=== PATIENT | male | born 1965 | race Caucasian/White ===

== ENCOUNTER 2018-12-07 08:02 | Inpatient (IN) | payer OTHER ==
[~2018-12-07] VITALS: Ht 177.8 cm; Wt 81.0 kg
[2018-12-07] MEDS ORDERED: IBUP1TAB6 PO (08:49)
--- NOTE | 2018-12-07 09:27 | REP ---
CT of the brain without IV contrast: There are no comparisons. There is no hemorrhage. There is no edema, mass effect or midline shift. The cortical stripe is unremarkable. Ventricles are normal size and midline. The visualized paranasal sinuses and mastoid air cells are clear. Impression: There is no hemorrhage, acute infarct or mass. Essentially negative CT study of the brain. Electronically Signed by Pascual Scales MD 12/07/2018 09:18 A
[2018-12-07] MEDS ORDERED: PERCOCET 5MG/325MG TAB PO ONE (10:00)
[2018-12-07] MEDS ORDERED: NORC1TAB7 PO (10:44)
--- NOTE | 2018-12-07 11:10 | REP ---
CT CERVICAL SPINE: CT cervical spine performed. Axial images are obtained with sagittal and coronal reconstruction images. There is no compression fracture. There is no prevertebral soft tissue swelling. There is slight retrolisthesis of C5 on C6 about 2 mm. There is mild spurring of C5. There is mild disc space narrowing at C5-6 and C6-7. A bifid spinous process is seen at C5. 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 There is bifid spinous process at C6. There is partial fusion of the right posterior lamina of C6 and C7 with a pseudoarticulation with subchondral sclerosis and hypertrophic changes. At C2-3, there is minimal diffuse disc bulging. Uncovertebral spurring causes some minimal foraminal narrowing on the left. At C5-6, there is mild diffuse disc bulging asymmetrically more so to the left of midline with uncovertebral and facet spurring. There is mild to moderate left sided foraminal narrowing without significant spinal stenosis. At C4-5, there is mild to moderate diffuse disc bulging with uncovertebral and facet spurring. There is mild spinal stenosis. There is not significant foraminal narrowing. At C5-6, there is mild diffuse disc bulging. There is uncovertebral spurring. The hypertrophic change from the posterior congenital fusion anomaly projects slightly into the right posterior spinal canal. There is mild to moderate spinal stenosis at this level. There is not significant foraminal narrowing. At C6-7, there is mild uncovertebral spurring without spinal stenosis or significant foraminal narrowing. IMPRESSION: No acute fracture or dislocation. Degenerative changes as above with mild disc bulging at multiple levels. 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 There is mild spinal stenosis at C4-5 and C5-6. Electronically Signed by Pascual Galan MD 12/08/2018 03:37 P
[2018-12-07] MEDS ORDERED: MULTIVITAMIN -ADULT INJECTION 10 ML, THIAMINE INJection 100 MG, FOLIC ACID 1 MG in NS 1... IV ONE (12:00)
[2018-12-07 12:52] LABS: BASO # 0.1 10^3/uL (0.0-0.2); BASO % 1.2 % (0.0-1.0); EOS # 0.2 10^3/uL (0.0-0.50); EOS % 2.4 % (0.0-3.0); HEMATOCRIT 46.8 % (42.0-52.0); HEMOGLOBIN 15.4 g/dl (13.5-17.5); LYMPH # 3.2 10^3/uL (1.5-4.5); LYMPH % 34.3 % (24.0-44.0); MEAN CORPUSCULAR HEMOGLOBIN 31.1 pg (27.0-33.0); MEAN CORPUSCULAR HGB CONC 32.9 g/dl (32.0-36.5); MEAN CORPUSCULAR VOLUME 94.5 fl (80.0-96.0); MONO # 0.5 10^3/uL (0.0-0.8); MONO % 5.8 % (0.0-5.0); NEUTROPHILS # 5.2 10^3/uL (1.8-7.7); PLATELET COUNT, AUTOMATED 279 10^3/uL (150-450); RED BLOOD COUNT 4.95 10^6/uL (4.30-6.10); WHITE BLOOD COUNT 9.3 10^3/uL (4.0-10.0)
[2018-12-07 13:05] LABS: AMPHETAMINES LEVEL URINE NEGATIVE (NEGATIVE); BARBITURATES URINE NEGATIVE (NEGATIVE); BENZODIAZEPINES URINE NEGATIVE (NEGATIVE); CANNABINOIDS URINE POSITIVE (NEGATIVE); COCAINE METABOLITE URINE POSITIVE (NEGATIVE); METHADONE URINE NEGATIVE (NEGATIVE); OPIATES URINE NEGATIVE (NEGATIVE); PHENCYCLIDINE URINE NEGATIVE (NEGATIVE)
[2018-12-07 13:08] LABS: INR 1.08; PROTHROMBIN TIME 13.7 SECONDS (11.8-14.0)
--- NOTE | 2018-12-07 13:08 | REP ---
CHEST, PORTABLE: AP portable view of the chest is performed. There are no prior studies for comparison. There is mild interstitial prominence in the lung bases, representing fibrosis or some mild bibasilar interstitial infiltrate/edema. No consolidating infiltrate is seen. Heart is normal in size. Mediastinal silhouette is unremarkable. Electronically Signed by Pascual Galan MD 12/08/2018 03:55 P
[2018-12-07 13:09] LABS: PARTIAL THROMBOPLASTIN TIME 29.1 SECONDS (25.0-38.4)
[2018-12-07 13:36] LABS: ACETAMINOPHEN LEVEL 5.4 UG/ML (10.0-30.0); ALBUMIN 3.5 GM/DL (3.2-5.2); ALT/SGPT 14 U/L (12-78); BILIRUBIN,DIRECT 0.1 MG/DL (0.0-0.2); BILIRUBIN,TOTAL 0.4 MG/DL (0.2-1.0); BLOOD UREA NITROGEN 17 MG/DL (7-18); CALCIUM LEVEL 8.8 MG/DL (8.5-10.1); CARBON DIOXIDE LEVEL 25 MEQ/L (21-32); CHLORIDE LEVEL 112 MEQ/L (98-107); CK-MB VALUE MASS < 1.0 NG/ML (<3.6); CPK CREATINE PHOSPHOKINASE 81 U/L (39-308); CREATININE FOR GFR 0.99 MG/DL (0.70-1.30); ETHYL ALCOHOL (ETHANOL) < 0.003 % (0.000-0.010); FREE T4 0.86 NG/DL (0.76-1.46); GLOMERULAR FILTRATION RATE > 60.0 (>56); GLUCOSE, FASTING 90 MG/DL (70-100); LIPASE 652 U/L (73-393); MB/CK RELATIVE INDEX 1.23 (< OR =4); NT-PRO BNP 36 PG/ML (<125); SALICYLATE LEVEL 2.3 MG/DL (5.0-30.0); SODIUM LEVEL 144 MEQ/L (136-145); TOTAL PROTEIN 6.6 GM/DL (6.4-8.2); TROPONIN I < 0.02 NG/ML (< 0.10)
[2018-12-07] MEDS ORDERED: ALPRAZolam 0.25 MG TAB PO PRN (14:30)
--- NOTE | 2018-12-07 15:39 | HPEPDOC ---
General Date of Admission Dec 07, 2018 at 14:16 Date of Service: Dec 07, 2018 Chief Complaint The patient is a 53-year-old male who presented to the emergency room with complaints of neck pain History of Present Illness Patient is a 53-year-old male with a past medical history of HTN, C hronic neck pain / degenerative disc disease who presented to the emergency room with persistent neck/head pain. Patient has a chronic history of upper neck pain secondary to degenerative disc disease and is followed with orthopedic surgery as an outpatient. Patient presented to the emergency room because of worsening upper neck/head pain that has been going on for 1 month duration. Patient had received imaging in the emergency room and had a reviewed by orthopedic surgery who recommended outpa tient follow-up. Upon patients discharge, patient had reported dizziness and was found to have a heart rate in the 30s. Currently patient denies any chest pain, shortness of breath, palpitations, n ausea, vomiting, abdominal pain, constipation, diarrhea, discomfort with urination, fevers or chills. Patient denies any insect bites or tick bites. Has reported a weight loss of approximately 20-30 pounds in the last 3 months and has reported normal appetite. 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 Review of Systems Other systems 10 point review of systems complete, all negative otherwise stated in HPI Vital Signs - Vitals: BP 132/62, HR 38, RR 18, Sat 97%RA, Temp 98.6F - General: Lying in bed, No acute distress, Speaking in full sentences, AAOx3 - HEENT: NC, AT, PERRLA, EOMI - CVS: Bradycardic, Regular, +S1S2 - Lungs: Fair air entry bilaterally, No appreciable wheezing / rales / rhonchi - Abdomen: Soft, Non-distended, Non-tender - Extremities: No lower extremity edema, No calf tenderness - Neuro: No focal motor or sensory deficit - Skin: No visible rashes Laboratory Data Labs 24H Laboratory Tests 2 12/07/18 12:24: Urine Amphetamines Screen NEGATIVE, Urine Benzodiazepines Screen NEGATIVE, Urine Opiates Screen NEGATIVE, Urine Methadone Screen NEGATIVE, Urine Barbiturates Screen NEGATIVE, Urine Phencyclidine Screen NEGATIVE, Urine Cocaine Metabolite Screen POSITIVEH, Urine Cannabinoids Screen POSITIVEH 12/07/18 12:31: Immature Granulocyte % (Auto) 0.3, White Blood Count 9.3, Red Blood Count 4.95, Hemoglobin 15.4, Hematocrit 46.8, Mean Corpuscular Volume 94.5, Mean Corpuscular Hemoglobin 31.1, Mean Corpuscular Hemoglobin Concent 32.9, Red Cell Distribution Width 13.4, Platelet Count 279, Neutrophils (%) (Auto) 56.0, Lymphocytes (%) (Auto) 34.3, Monocytes (%) (Auto) 5.8H, Eosinophils (%) (Auto) 2.4, Basophils (%) (Auto) 1.2H, Neutrophils # (Auto) 5.2, Lymphocytes # (Auto) 3.2, Monocytes # (Auto) 0.5, Eosinophils # (Auto) 0.2, Basophils # (Auto) 0.1, Nucleated Red Blood Cells % (auto) 0.0, Prothrombin Time 13.7, Prothromb Time International Ratio 1.08, Activated Partial Thromboplast Time 29.1, Anion Gap 7L, Glomerular Filtration Rate > 60.0, Calcium Level 8.8, Aspartate Amino Transf (AST/SGOT) 10, Alanine Aminotransferase (ALT/SGPT) 14, Alkaline Phosphatase 68, Total Bilirubin 0.4, Direct Bilirubin 0.1, Total Creatine Kinase 81, Creatine Kinase MB < 1.0, Creatine Kinase MB Relative Index 1.23, Troponin I < 0.02, AE-Jtm-[id number]-Type Natriuretic Peptide 36, Total Protein 6.6, Albumin 3.5, Albumin/Globulin Ratio 1.13, Lipase 652H, Thyroid Stimulating Hormone (TSH) 1.430, Free Thyroxine 0.86, Salicylates Level 2.3L, Acetaminophen Level 5.4L, Ethyl Alcohol Level < 0.003 CBC/BMP Laboratory Tests 12/07/18 12:31 Red Blood Count 4.95, Mean Corpuscular Volume 94.5, Mean Corpuscular Hemoglobin 31.1, Mean Corpuscular Hemoglobin Concent 32.9, Red Cell Distribution Width 13.4, Neutrophils (%) (Auto) 56.0, Lymphocytes (%) (Auto) 34.3, Monocytes (%) (Auto) 5.8 H, Eosinophils (%) (Auto) 2.4, Basophils (%) (Auto) 1.2 H, Neutrophils # (Auto) 5.2, Lymphocytes # (Auto) 3.2, Monocytes # (Auto) 0.5, Eosinophils # (Auto) 0.2, Basophils # (Auto) 0.1 Plan / VTE VTE Prophylaxis Ordered?: Yes Plan Plan Symptomatic bradycardia - Patient had reported dizziness upon leaving the emergency room; and was found to have a heart rate in the 30s - Patient remains hemodynamically stable - Medications have been reviewed without any expanding factors - EKG is consistent with sinus bradycardia - Troponin first set is negative - Will continue with cardiac monitoring; will place patient in PCU - Case has been discussed with cardiology; plan for pacemaker placement later today - Patient will remain nothing by mouth and will continue with IV fluid hydration HTN - Patient current blood pressure appears to be in the normotensive range - Will hold off on starting any therapy at this time Anxiety - Will start low dose Xanax for relief Neuropathy/chronic neck pain/degenerative disc disease - CT head 12/07: There is no hemorrhage, acute infarct or mass. - CT cervical spine 12/07: No acute fracture or dislocation. Degenerative changes as above with mild disc bulging at multiple levels. 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 There is mild spinal stenosis at C4-5 and C5-6. - Orthopedic surgery, Dr. Vincent Mooney was contacted by ER provider; had recommended outpatient follow-up and no current intervention Nicotine dependence - Advised smoking cessation - Will start nicotine patch Polysubstance abuse - Patients x-ray was positive for marijuana and cocaine DVT prophylaxis - Will start Heparin MICHELLE RIOJAS MD Dec 07, 2018 15:39
[2018-12-07] MEDS ORDERED: NICOTINE 21MG/24HR 1 EA TRANSDERMAL TD ONE (15:45)
[2018-12-07] MEDS ORDERED: LR 1,000 ML IV SCH ×2 (17:00→22:15)
[2018-12-07] MEDS ORDERED: ceFAZolin SOD 2 GM in IV 1 EA IV ONE (17:30)
[2018-12-07] MEDS ORDERED: MUPIROCIN 2% OINT 22 GM TUBE As Ordered ONE (18:15)
[2018-12-07] MEDS ORDERED: LIDOCAINE 1% SDV INJ 30 ML VIAL As Ordered ONE (18:15)
[2018-12-07] MEDS ORDERED: ISOVUE-300 61% 50ML VIAL (Q9967) As Ordered ONE (18:15)
[2018-12-07 19:20] LABS: CK-MB VALUE MASS < 1.0 NG/ML (<3.6); CPK CREATINE PHOSPHOKINASE 71 U/L (39-308); MB/CK RELATIVE INDEX 1.41 (< OR =4); TROPONIN I < 0.02 NG/ML (< 0.10)
[2018-12-07] MEDS ORDERED: ceFAZolin 2 GM/D5W 50 ML IV BAG (J0690 PER 500MG) As Ordered ONE (19:47)
--- NOTE | 2018-12-07 19:57 | ECGEPIP ---
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
--- NOTE | 2018-12-07 20:36 | CR ---
DATE OF CONSULTATION: 12/07/2018 REFERRING PHYSICIAN: Kris Galan MD REASON FOR CONSULTATION: Sick sinus syndrome (symptomatic bradycardia). HISTORY OF PRESENT ILLNESS: The patient presented to the emergency room earlier today with complaints of neck pain. While he was in the emergency room, he was noted to have severe sinus bradycardia in the 30s. He reported that he has been having dizziness/lightheadedness. He was therefore considered to have symptomatic sinus bradycardia and that he would likely benefit from a permanent dual-chamber pacemaker. The patient reports a few month history of non-vertiginous dizziness/lightheadedness including orthostatic lightheadedness. No near syncope or syncope. No palpitations. No chest, neck, jaw or upper extremity pain, pressure, tightness, squeezing or heaviness with or without physical exertion with the exception of chronic posterior neck pain. He reports problems with fatigue in the past few months. No exertional dyspnea. No peripheral edema. ALLERGIES: No known adverse drug reactions. MEDICATIONS PRIOR TO ADMISSION: Ibuprofen 600 mg three times a day as needed for pain. PAST MEDICAL AND SURGICAL HISTORY: Systemic hypertension, remote history of peptic ulcer disease, chronic neck pain (degenerative disk disease). No prior surgery. FAMILY HISTORY: Mother had chronic obstructive pulmonary disease (COPD). Father secondary to suicide. SOCIAL HISTORY: He has been a smoker for the past 35 years and currently averages one pack per day. Social alcohol intake. Recent history of marijuana and cocaine. Lives with his nephew. 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 REVIEW OF SYSTEMS: Chronic neck pain. Dizziness as described above per history of present illness. PHYSICAL EXAMINATION: Temperature 98.6, respiratory rate 18, pulse 38 (regular), blood pressure (BP) 132/62, oxygen saturation 97% on room air. Height 7 inches, weight 85.3 kg, body mass index (BMI) 27.0. No conjunctiva pallor, scleral icterus or xanthomas. Multiple missing teeth. Oral mucosa is moist without pallor or cyanosis. Jugular venous pulsations were at 4 cm. Trachea midline. No palpable thyroid. No clubbing, cyanosis or splinter hemorrhages. No skin lesions, skin pallor or icterus. Oriented to person, place and time. Mood and affect normal. Curvature of spine normal. Gait was not tested as the patient is on bedrest in the emergency room (ER) at the moment. Gross and motor strength and tone appeared normal. No fasciculations or tremors. Respiratory expansion effort was normal. No dullness to percussion. No crackles or wheezes. No palpable or apex beat. No lift, heaves, thrills or palpable heart sounds. First and second heart sounds normal. No S3, S4 or murmurs. Carotids are normal in volume and contour and without bruits. No palpable abdominal aorta. No abdominal bruits. Femoral pulses normal. Pedal pulses normal. No peripheral edema. Abdomen was soft, nontender with normal bowel sounds. No hepatosplenomegaly or other organomegaly. Liver span 12 cm in the right midclavicular. Stool for occult blood not presently indicated. Electrocardiogram 12/07/2018 at 11:30 a.m. showed sinus bradycardia at 39 beats per minute with sinus arhythmia. Minimal voltage criteria for left ventricular hypertrophy (SVI + RV5 greater than 3.5 millivolts). LABORATORY WORK 12/07/2018 shows sodium 144, potassium 4.0, chloride 112, CO2 25, BUN 17, creatinine 0.99. Glomerular filtration rate (GFR) greater than 60, glucose 90, calcium 8.8, bilirubin 0.4, direct bilirubin 0.1, AST 10, ALT 14, alkaline phosphatase 68. CPK 81, CK-MB less than 1.0, troponin I less than 0.02, NT-proBNP 36. Total protein 6.6, albumin 3.5, lipase elevated at 652. Thyroid simulating hormone (TSH) 1.430, free T4 0.86. PT/INR 1.08. PTT 25.9. White blood count (WBC) 9.3, hemoglobin 15.4, hematocrit 46.8, platelets 239. I have independently visualized the patient's portable AP chest x-ray acquired 12/07/2018 at 12:01 p.m. Cardiac silhouette was normal in size and contour for a portable technique. No pulmonary vasculature redistribution. No interstitial edema. Increased lung markings present at both bases, consider fibrosis. No pleural effusions. No pneumothorax ASSESSMENT AND RECOMMENDATIONS: 1. Sick sinus syndrome. The patient has a 7 month history of prominent fatigue and non-vertiginous dizziness. He is documented to have severe sinus bradycardia in the 30s. I would consider him to have Sick sinus syndrome. He is not on any medications to account for the nayely bradycardia and his thyroid function was normal. He qualifies for implantation of a permanent dual-chamber pacemaker. Pacemaker implantation was discussed with the patient (dual-chamber) including the alternative of no pacemaker, which would result in continuation of his symptoms and possible progression to near syncope or syncope and its consequences. Risk of pacemaker implantation were discussed with the patient including, but not all inclusive of infection (1%), pneumothorax (1%), bleeding, poor wound healing, lead dislodgment, cardiac dysrhythmias, adverse drug reaction and cardiac perforation with cardiac tamponade (3/100). The patient was agreeable to proceed with pacemaker implantation and signed a consent form. He has been nothing by mouth since yesterday evening. The plan will be to proceed with the pacemaker implant later this evening when the operating room becomes available. 2. Systemic hypertension. Blood pressure presently controlled. He is not presently on any antihypertensive agents. Continue to observe while in hospital. 3. Abnormal electrocardiogram (EKG). Left ventricular hypertrophy (LVH) without left ventricular hypertrophy (LVH) repolarization abnormalities. This is in addition to marked sinus bradycardia. 4. Hypertensive heart disease without congestive heart failure. The patient has systemic hypertension and has electrocardiogram (EKG) left ventricular hypertrophy (LVH) without left ventricular hypertrophy (LVH) repolarization abnormalities. He does not have exertional dyspnea and he does not appear to be in heart failure radiographically or clinically. Management of systemic hypertension as above.
[2018-12-07] MEDS ORDERED: fentaNYL 100 MCG/2 ML INJECTION (J3010) As Ordered ONE (21:08)
[2018-12-07] MEDS ORDERED: propofoL 500 MG/50 ML VIAL As Ordered ONE (21:08)
[2018-12-07] MEDS ORDERED: MIDAZOLAM INJ 2 MG/2 ML VIAL (J2250) As Ordered ONE (21:08)
[2018-12-07] MEDS ORDERED: HEPARIN SOD (PORCINE) 5000 UNITS/ML VIAL SC SCH (22:00)
[2018-12-07] MEDS: PERCOCET 5MG/325MG TAB PO PRN ×2 (22:05→22:32)
[2018-12-07] MEDS ORDERED: fentaNYL 100 MCG/2 ML INJECTION (J3010) IV PRN (22:15)
[2018-12-07] MEDS ORDERED: ONDANSETRON 4MG/2ML VIAL (J2405) IV PRN (22:15)
[2018-12-07] MEDS ORDERED: METOCLOPRAMIDE INJ 10MG/2ML VIAL (J2765) IV PRN (22:15)
[2018-12-07] MEDS ORDERED: PERCOCET 5MG/325MG TAB As Ordered ONE ×2 (22:31→23:05)
--- NOTE | 2018-12-07 23:00 | RO ---
DATE OF PROCEDURE: 12/07/2018 PREPROCEDURE DIAGNOSIS: Sick sinus syndrome. POSTPROCEDURE DIAGNOSIS: Sick sinus syndrome. FINDINGS: Sick sinus syndrome. PROCEDURE PERFORMED: Implantation of Biotronik dual-chamber pacemaker. SURGEON: Tanner Ko MD ARTIFICIAL LOG MACHINE OPERATOR: None. ANESTHESIA: Lidocaine 1% local/monitored anesthetic care. No specimens. Estimated blood loss: Less than 5 mL. No blood products replaced. No drains. No complications. DESCRIPTION OF PROCEDURE: The patient was prepped and draped over the left pectoral region. 3M Ioban film was applied. Lidocaine 1% was used for local anesthetic. A micropuncture needle was used via percutaneous technique aiming for the first rib to successfully obtain venous access to the extrathoracic portion of the left subclavian vein. This was then guidewire exchanged for a guidewire that came with one of the 6-Tristanian sheaths. Next, an incision was made with a PEAK PlasmaBlade approximately 2-1/2 to 3 inches in length, 1 cm below the guidewire. The PEAK PlasmaBlade was used to dissect through the tissue down to the level of the prepectoral fascia. The prepectoral fascia and María's fascia were then to form the pacemaker pocket in a caudal direction using blunt dissection using two fingers. The guidewire was then pulled through the skin into the incision site. I next took a separate and new micropuncture needle and at the level of the pectoral muscle and placed more lateral to the entry of the guidewire into the pectoral muscle of the first guidewire and used fluoroscopy to get a separate venous access to the extrathoracic portion of the left subclavian vein. This was then guidewire exchanged for a guidewire that came with the other 6-Tristanian sheath. Next, the 6-Tristanian sheath with introducer was placed over the more lateral of the two guidewires and was used for vein access for the right ventricle lead. The right ventricle lead was placed under fluoroscopic guidance in the vicinity of the right ventricle apex where it was secured with a total of 10 turns. This position was found to be electrically and anatomically satisfactory and no diaphragmatic stimulation could be palpated on either side at 10 volts high output pacing. The sheath was removed, and the ventricle lead was secured to the pectoral muscle with the supplied tie-down sleeve using two individual sutures consisting of #0 Ethibond. Next, I took another 6-Tristanian peel-away sheath and placed it over the more medial of the guidewires, and this was used for vein access for the right atrial lead. The right atrial lead was placed into the right atrial appendage position using the assistance of a preformed J-stylet where it was secured with a total of 12 turns. This position was found to be electrically and anatomically satisfactory and no diaphragm stimulation could be palpated on either side with 10 volts high output pacing. The 6-Tristanian sheath was then broken apart and removed. The atrial lead was secured to the pectoral muscle using the supplied tie-down sleeve using #0 Ethibond suture material. Next, another #0 Ethibond suture was placed in the pectoral muscle to serve as the tie-down for the pacemaker pulse generator. The terminal pins of the ventricular and atrial lead were plugged into their respective ports in the header of the pacemaker pulse generator and each one was secured by tightening the set screws with the hex screwdriver. The excess lead material was then coiled underneath the pacemaker pulse generator and placed along with the pacemaker pulse generator in the pacemaker pocket. It was then secured to the pectoral muscle with the previously placed #0 Ethibond suture. The deep layer was closed using individual sutures consisting of #2-0 Vicryl. A few additional #2-0 Vicryl sutures were used to help approximate the more superficial layer. The skin was then closed using honey. The patient tolerated the procedure well without any immediate complications. The right atrial lead implanted was a [employer] Solia S45 with model number [id number]. Testing through the pulse analyzer in the operating room for the right atrial lead in bipolar configuration showed a capture threshold of 0.8 volts at 0.4 milliseconds with average P wave amplitude of 2.5 millivolts and a lead impedance of 526 ohms. The right ventricle lead implanted was a Biotronik Solia S53 with serial number [id number]. Final testing in the operating room with the pulse analyzer for the right ventricle lead showed a capture threshold in bipolar configuration of 0.6 volts at 0.4 milliseconds with R wave amplitude of 10.7 millivolts and a lead impedance of 643 ohms. The pacemaker pulse generator implanted was a [employer] Edora 8 DR-T. Serial number was [id number].
[2018-12-07 23:30] VITALS: BP_SYST 162; BP_SYST 182; BP_DIAS 86; BP_DIAS 90
[2018-12-07 23:59] VITALS: BP 162/86
[2018-12-08 00:45] LABS: CK-MB VALUE MASS < 1.0 NG/ML (<3.6); CPK CREATINE PHOSPHOKINASE 77 U/L (39-308); TROPONIN I 0.05 NG/ML (< 0.10)
[2018-12-08 01:00] VITALS: BP 116/59
[2018-12-08 02:00] VITALS: BP 130/65
--- NOTE | 2018-12-08 02:58 | REP ---
Clinical: Pacemaker placement . Comparison: 12/07/2018 . Findings: The mediastinum and cardiac silhouette are stable and within normal limits for portable technique. Pacemaker identified with leads in stable satisfactory position. The lung leonard are clear without acute consolidation, effusion, or pneumothorax. Skeletal structures are intact. Impression: No acute cardiopulmonary process appreciated. Electronically Signed by Mark Anthony Montesinos MD 12/08/2018 02:49 A
[2018-12-08 03:00] VITALS: BP 124/68
[2018-12-08 04:00] VITALS: BP 119/59
[2018-12-08] MEDS: ACETAMINOPHEN TAB 650MG DOSE (2X325MG) PO PRN ×2 (04:48→12:28)
[2018-12-08 05:28] LABS: BASO # 0.1 10^3/uL (0.0-0.2); BASO % 0.9 % (0.0-1.0); EOS # 0.4 10^3/uL (0.0-0.50); EOS % 3.6 % (0.0-3.0); HEMATOCRIT 43.7 % (42.0-52.0); HEMOGLOBIN 14.3 g/dl (13.5-17.5); LYMPH # 2.8 10^3/uL (1.5-4.5); LYMPH % 25.9 % (24.0-44.0); MEAN CORPUSCULAR HEMOGLOBIN 30.6 pg (27.0-33.0); MEAN CORPUSCULAR HGB CONC 32.7 g/dl (32.0-36.5); MEAN CORPUSCULAR VOLUME 93.6 fl (80.0-96.0); MONO # 0.7 10^3/uL (0.0-0.8); MONO % 6.5 % (0.0-5.0); NEUTROPHILS # 6.8 10^3/uL (1.8-7.7); NEUTROPHILS % 62.6 % (36.0-66.0); PLATELET COUNT, AUTOMATED 263 10^3/uL (150-450); RED BLOOD COUNT 4.67 10^6/uL (4.30-6.10); WHITE BLOOD COUNT 10.8 10^3/uL (4.0-10.0)
[2018-12-08] MEDS: SLF 3 ML SYR IV SCH ×2 (05:34→14:00)
[2018-12-08 05:49] LABS: BLOOD UREA NITROGEN 13 MG/DL (7-18); CALCIUM LEVEL 8.4 MG/DL (8.5-10.1); CARBON DIOXIDE LEVEL 26 MEQ/L (21-32); CHLORIDE LEVEL 114 MEQ/L (98-107); CREATININE FOR GFR 0.93 MG/DL (0.70-1.30); GLOMERULAR FILTRATION RATE > 60.0 (>56); GLUCOSE, FASTING 141 MG/DL (70-100); MAGNESIUM LEVEL 2.3 MG/DL (1.8-2.4); POTASSIUM SERUM 3.7 MEQ/L (3.5-5.1); SODIUM LEVEL 144 MEQ/L (136-145)
--- NOTE | 2018-12-08 07:59 | REP ---
PA and lateral chest: Comparisons are 12/07/2018. There is a dual-chamber pacemaker entering from left with the pacing tips in satisfactory locations. There are skin honey adjacent to the pacemaker power pack. There is no pneumothorax or hemothorax. Lung leonard are clear. Cardiac size is normal. The castillo, mediastinum, skeletal structures are unremarkable. Impression: Essentially negative PA and lateral chest. There is a pacemaker as described. Electronically Signed by Pascual Scales MD 12/08/2018 07:50 A
[2018-12-08 08:00] VITALS: BP 141/56
[2018-12-08] MEDS: ASCORBIC ACID 250 MG TAB PO SCH ×2 (08:09)
[2018-12-08] MEDS ORDERED: OXYC1TAB23 PO (08:25)
[2018-12-08] MEDS ORDERED: NICO21PAT TD (08:25)
[2018-12-08] MEDS ORDERED: PERCOCET 5MG/325MG TAB PO PRN (08:30)
[2018-12-08] MEDS ORDERED: PERCOCET 5MG/325MG TAB PO ONE (08:30)
[2018-12-08] MEDS ORDERED: MORPHINE 4 MG/ML 1ML VIAL/SYRINGE (J2270) IV PRN (08:30)
[2018-12-08] MEDS ORDERED: MORPHINE 4 MG/ML 1ML VIAL/SYRINGE (J2270) IV ONE (08:30)
--- NOTE | 2018-12-08 08:52 | IPNPDOC ---
Date Seen The patient was seen on 12/08/18. Progress Note SUBJECTIVE: Pt c/o achy pain in the left shoulder s/p pacer. tele: sinus aruna. had some lightheadedness when he first got up but bp was normal. no c/o sob, or dizziness. 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 Cardiology to assess wound and check pacer prior to dc and fu in 7days as outpt. OBJECTIVE: VITALS: PLS SEE BELOW TELE: Sinus aruna s/p pacer - General: Lying in bed, No acute distress, Speaking in full sentences, AAOx3 - HEENT: NC, AT, PERRLA, EOMI - CVS:pacer Bradycardic, Regular, +S1S2 - Lungs: Fair air entry bilaterally, No appreciable wheezing / rales / rhonchi - Abdomen: Soft, Non-distended, Non-tender - Extremities: No lower extremity edema, No calf tenderness - Neuro: No focal motor or sensory deficit - Skin: No visible rashes LABORATORY DATA, IMAGING STUDIES:PLS SEE BELOW ASSESSMENT AND PLAN: patient is a 53-year-old male with a past medical history of HTN, Chronic neck pain / degenerative disc disease who presented to the emergency room with persistent neck/head pain.Patient has a chronic history of upper neck pain secondary to degenerative disc disease and is followed with orthopedic surgery as an outpatient. Patient presented to the emergency room because of worsening upper neck/head pain that has been going on for 1 month duration. Patient had received imaging in the emergency room and had a reviewed by orthopedic surgery who recommended outpatient follow-up.Upon patients discharge, patient had reported dizziness and was found to have a heart rate in the 30s.patient denies any chest pain, shortness of breath, palpitations, nausea, vomiting, abdominal pain, constipation, diarrhea, discomfort with urination, fevers or chills.patient denies any insect bites or tick bites.Has reported a weight loss of approximately 20-30 pounds in the last 3 months and has reported normal appetite. Sick Sinus Syndrome: - Patient had reported dizziness upon leaving the emergency room; and was found to have a heart rate in the 30s - Patient remains hemodynamically stable - Medications have been reviewed without any expanding factors - EKG is consistent with sinus bradycardia - Troponin first set is negative - Will continue with cardiac monitoring; will place patient in PCU - Case has been discussed with cardiology -s/p 12/07/18Dr. An[employer]ol pacemaker placement Cardiology to assess wound and check pacer prior to dc and fu in 7days as outpt. HTN - Patient current blood pressure appears to be in the normotensive range Anxiety - Will start low dose Xanax for relief Neuropathy/chronic neck pain/degenerative disc disease - CT head 12/07: There is no hemorrhage, acute infarct or mass. - CT cervical spine 12/07: No acute fracture or dislocation. Degenerative changes as above with mild disc bulging at multiple levels. 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 There is mild spinal stenosis at C4-5 and C5-6. - Orthopedic surgery, Dr. Vincent Mooney was contacted by ER provider; had recommended outpatient follow-up and no current intervention Nicotine dependence - Advised smoking cessation - Will start nicotine patch Polysubstance abuse - Patients x-ray was positive for marijuana and cocaine DVT prophylaxis - Heparin Disposition: Cardiology to assess wound and check pacer prior to dc and fu in 7days as outpt,but dc home today. VS, I&O, 24H, [facility] Vital Signs/I&O Vital Signs Date Time Temp Pulse Resp B/P (MAP) Pulse Ox O2 Delivery O2 Flow Rate FiO2 12/08/18 04:00 97.0 51 18 119/59 (79) 98 2.0 12/07/18 18:52 Room Air I&O- Last 24 Hours up to 6 AM 12/08/18 06:00 Intake Total 400 ml Output Total 300 ml Balance 100 ml Laboratory Data 24H LABS Laboratory Tests 2 12/07/18 12:24: Urine Amphetamines Screen NEGATIVE, Urine Benzodiazepines Screen NEGATIVE, Urine Opiates Screen NEGATIVE, Urine Methadone Screen NEGATIVE, Urine Barbiturates Screen NEGATIVE, Urine Phencyclidine Screen NEGATIVE, Urine Cocaine Metabolite Screen POSITIVEH, Urine Cannabinoids Screen POSITIVEH 12/07/18 12:31: Immature Granulocyte % (Auto) 0.3, White Blood Count 9.3, Red Blood Count 4.95, Hemoglobin 15.4, Hematocrit 46.8, Mean Corpuscular Volume 94.5, Mean Corpuscular Hemoglobin 31.1, Mean Corpuscular Hemoglobin Concent 32.9, Red Cell Distribution Width 13.4, Platelet Count 279, Neutrophils (%) (Auto) 56.0, Lymphocytes (%) (Auto) 34.3, Monocytes (%) (Auto) 5.8H, Eosinophils (%) (Auto) 2.4, Basophils (%) (Auto) 1.2H, Neutrophils # (Auto) 5.2, Lymphocytes # (Auto) 3.2, Monocytes # (Auto) 0.5, Eosinophils # (Auto) 0.2, Basophils # (Auto) 0.1, Nucleated Red Blood Cells % (auto) 0.0, Prothrombin Time 13.7, Prothromb Time International Ratio 1.08, Activated Partial Thromboplast Time 29.1, Anion Gap 7L, Glomerular Filtration Rate > 60.0, Calcium Level 8.8, Aspartate Amino Transf (AST/SGOT) 10, Alanine Aminotransferase (ALT/SGPT) 14, Alkaline Phosphatase 68, Total Bilirubin 0.4, Direct Bilirubin 0.1, Total Creatine Kinase 81, Creatine Kinase MB < 1.0, Creatine Kinase MB Relative Index 1.23, Troponin I < 0.02, TT-Swe-Y-Type Natriuretic Peptide 36, Total Protein 6.6, Albumin 3.5, Albumin/Globulin Ratio 1.13, Lipase 652H, Thyroid Stimulating Hormone (TSH) 1.430, Free Thyroxine 0.86, Salicylates Level 2.3L, Acetaminophen Level 5.4L, Ethyl Alcohol Level < 0.003 12/07/18 18:26: Total Creatine Kinase 71, Creatine Kinase MB < 1.0, Creatine Kinase MB Relative Index 1.41, Troponin I < 0.02 12/07/18 23:57: Total Creatine Kinase 77, Creatine Kinase MB < 1.0, Creatine Kinase MB Relative Index 1.30, Troponin I 0.05# 12/08/18 05:03: Immature Granulocyte % (Auto) 0.5, White Blood Count 10.8H, Red Blood Count 4.67, Hemoglobin 14.3, Hematocrit 43.7, Mean Corpuscular Volume 93.6, Mean Corpuscular Hemoglobin 30.6, Mean Corpuscular Hemoglobin Concent 32.7, Red Cell Distribution Width 13.5, Platelet Count 263, Neutrophils (%) (Auto) 62.6, Lymphocytes (%) (Auto) 25.9, Monocytes (%) (Auto) 6.5H, Eosinophils (%) (Auto) 3.6H, Basophils (%) (Auto) 0.9, Neutrophils # (Auto) 6.8, Lymphocytes # (Auto) 2.8, Monocytes # (Auto) 0.7, Eosinophils # (Auto) 0.4, Basophils # (Auto) 0.1, Nucleated Red Blood Cells % (auto) 0.0, Anion Gap 4L, Glomerular Filtration Rate > 60.0, Blood Urea Nitrogen 13, Creatinine 0.93, Sodium Level 144, Potassium Level 3.7, Chloride Level 114H, Carbon Dioxide Level 26, Calcium Level 8.4L, Magnesium Level 2.3 CBC/BMP Laboratory Tests 12/07/18 12:31 Red Blood Count 4.95, Mean Corpuscular Volume 94.5, Mean Corpuscular Hemoglobin 31.1, Mean Corpuscular Hemoglobin Concent 32.9, Red Cell Distribution Width 13.4, Neutrophils (%) (Auto) 56.0, Lymphocytes (%) (Auto) 34.3, Monocytes (%) (A uto) 5.8 H, Eosinophils (%) (Auto) 2.4, Basophils (%) (Auto) 1.2 H, Neutrophils # (Auto) 5.2, Lymphocytes # (Auto) 3.2, Monocytes # (Auto) 0.5, Eosinophils # (Auto) 0.2, Basophils # (Auto) 0.1 12/08/18 05:03 Red Blood Count 4.67, Mean Corpuscular Volume 93.6, Mean Corpuscular Hemoglobin 30.6, Mean Corpuscular Hemoglobin Concent 32.7, Red Cell Distribution Width 13.5, Neutrophils (%) (Auto) 62.6, Lymphocytes (%) (Auto) 25.9, Monocytes (%) (Auto) 6.5 H, Eosinophils (%) (Auto) 3.6 H, Basophils (%) (Auto) 0.9, Neutrophils # (Auto) 6.8, Lymphocytes # (Auto) 2.8, Monocytes # (Auto) 0.7, Eosinophils # (Auto) 0.4, Basophils # (Auto) 0.1, Calcium Level 8.4 ROSALES ARELLANO MD Dec 08, 2018 08:02
[2018-12-08] MEDS ORDERED: ACE65ERTAB PO (08:58)
[2018-12-08] MEDS ORDERED: NICOTINE 21MG/24HR 1 EA TRANSDERMAL TD SCH (09:00)
--- NOTE | 2018-12-08 10:08 | DS.PDOC ---
Discharge Summary General Date of Admission Dec 07, 2018 at 14:16 Date of Discharge December 08, 2018 Discharge Summary PROCEDURES PERFORMED DURING STAY: pacemaker 12/07/18 for sick sinus syndrome (Dr. 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 HISTORY OF PRESENTING ILLNESS: patient is a 53-year-old male with a past medical history of HTN, Chronic neck pain / degenerative disc disease who presented to the emergency room with persistent neck/head pain.Patient has a chronic history of upper neck pain secondary to degenerative disc disease and is followed with orthopedic surgery as an outpatient. Patient presented to the emergency room because of worsening upper neck/head pain that has been going on for 1 month duration. Patient had received imaging in the emergency room and had a reviewed by orthopedic surgery who recommended outpatient follow-up.Upon patients discharge, patient had reported dizziness and was found to have a heart rate in the 30s.patient denies any chest pain, shortness of breath, palpitations, nausea, vomiting, abdominal pain, constipation, diarrhea, discomfort with urination, fevers or chills.patient denies any insect bites or tick bites.Has reported a weight loss of approximately 20-30 pounds in the last 3 months and has reported normal appetite. HOSPITAL COURSE: Sick Sinus Syndrome: - Patient had reported dizziness upon leaving the emergency room; and was found to have a heart rate in the 30s - Patient remains hemodynamically stable - Medications have been reviewed without any expanding factors - EKG is consistent with sinus bradycardia - Troponin first set is negative - Will continue with cardiac monitoring; will place patient in PCU - Case has been discussed with cardiology -s/p 12/07/18Dr. White pacemaker placement Cardiology to assess wound and check pacer prior to dc and fu in 7days as outpt. HTN - Patient current blood pressure appears to be in the normotensive range Anxiety - Will start low dose Xanax for relief Neuropathy/chronic neck pain/degenerative disc disease - CT head 12/07: There is no hemorrhage, acute infarct or mass. - CT cervical spine 12/07: No acute fracture or dislocation. Degenerative changes as above with mild disc bulging at multiple levels. 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 There is mild spinal stenosis at C4-5 and C5-6. - Orthopedic surgery, Dr. Vincent Mooney was contacted by ER provider; had recommended outpatient follow-up and no current intervention Nicotine dependence - Advised smoking cessation - Will start nicotine patch Polysubstance abuse - positive for marijuana and cocaine DVT prophylaxis - Heparin Disposition: Cardiology to assess wound and check pacer prior to dc and fu in 7days as outpt,but dc home today. DISCHARGE PHYSICAL EXAMINATION VITALS: PLS SEE BELOW TELE: Sinus aruna s/p pacer - General: Lying in bed, No acute distress, Speaking in full sentences, AAOx3 - HEENT: NC, AT, PERRLA, EOMI - CVS:pacer Bradycardic, Regular, +S1S2 - Lungs: left anterior chest s/p pacer with bandage Fair air entry bilaterally, No appreciable wheezing / rales / rhonchi - Abdomen: Soft, Non-distended, Non-tender (+) bs x 4 quadrants - Extremities: No lower extremity edema, No calf tenderness - Neuro: No focal motor or sensory deficit - Skin: No visible rashes LABORATORY DATA, IMAGING STUDIES:PLS SEE BELOW TIME SPENT ON DISCHARGE: 32 MIN DISCHARGE INSTRUCTIONS: ACTIVITY AND WOUND CARE 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 WHITE Vital Signs/I&Os Vital Signs Date Time Temp Pulse Resp B/P (MAP) Pulse Ox O2 Delivery O2 Flow Rate FiO2 12/08/18 08:42 18 12/08/18 08:00 98.3 56 141/56 (84) 95 12/08/18 04:00 2.0 12/07/18 18:52 Room Air I&O- Last 24 Hours up to 6 AM 12/08/18 05:59 Intake Total 200 ml Output Total 0 ml Balance 200 ml Laboratory Data Labs 24H Laboratory Tests 2 12/07/18 12:24: Urine Amphetamines Screen NEGATIVE, Urine Benzodiazepines Screen NEGATIVE, Urine Opiates Screen NEGATIVE, Urine Methadone Screen NEGATIVE, Urine Barbiturates Screen NEGATIVE, Urine Phencyclidine Screen NEGATIVE, Urine Cocaine Metabolite Screen POSITIVEH, Urine Cannabinoids Screen POSITIVEH 12/07/18 12:31: Immature Granulocyte % (Auto) 0.3, White Blood Count 9.3, Red Blood Count 4.95, Hemoglobin 15.4, Hematocrit 46.8, Mean Corpuscular Volume 94.5, Mean Corpuscular Hemoglobin 31.1, Mean Corpuscular Hemoglobin Concent 32.9, Red Cell Distribution Width 13.4, Platelet Count 279, Neutrophils (%) (Auto) 56.0, Lymphocytes (%) (Auto) 34.3, Monocytes (%) (Auto) 5.8H, Eosinophils (%) (Auto) 2.4, Basophils (%) (Auto) 1.2H, Neutrophils # (Auto) 5.2, Lymphocytes # (Auto) 3.2, Monocytes # (Auto) 0.5, Eosinophils # (Auto) 0.2, Basophils # (Auto) 0.1, Nucleated Red Blood Cells % (auto) 0.0, Prothrombin Time 13.7, Prothromb Time International Ratio 1.08, Activated Partial Thromboplast Time 29.1, Anion Gap 7L, Glomerular Filtration Rate > 60.0, Calcium Level 8.8, Aspartate Amino Transf (AST/SGOT) 10, Alanine Aminotransferase (ALT/SGPT) 14, Alkaline Phosphatase 68, Total Bilirubin 0.4, Direct Bilirubin 0.1, Total Creatine Kinase 81, Creatine Kinase MB < 1.0, Creatine Kinase MB Relative Index 1.23, Troponin I < 0.02, IS-Aro-M-Type Natriuretic Peptide 36, Total Protein 6.6, Albumin 3.5, Albumin/Globulin Ratio 1.13, Lipase 652H, Thyroid Stimulating Hormone (TSH) 1.430, Free Thyroxine 0.86, Salicylates Level 2.3L, Acetaminophen Level 5.4L, Ethyl Alcohol Level < 0.003 12/07/18 18:26: Total Creatine Kinase 71, Creatine Kinase MB < 1.0, Creatine Kinase MB Relative Index 1.41, Troponin I < 0.02 12/07/18 23:57: Total Creatine Kinase 77, Creatine Kinase MB < 1.0, Creatine Kinase MB Relative Index 1.30, Troponin I 0.05# 12/08/18 05:03: Immature Granulocyte % (Auto) 0.5, White Blood Count 10.8H, Red Blood Count 4.67, Hemoglobin 14.3, Hematocrit 43.7, Mean Corpuscular Volume 93.6, Mean Corpuscular Hemoglobin 30.6, Mean Corpuscular Hemoglobin Concent 32.7, Red Cell Distribution Width 13.5, Platelet Count 263, Neutrophils (%) (Auto) 62.6, Lymphocytes (%) (Auto) 25.9, Monocytes (%) (Auto) 6.5H, Eosinophils (%) (Auto) 3.6H, Basophils (%) (Auto) 0.9, Neutrophils # (Auto) 6.8, Lymphocytes # (Auto) 2.8, Monocytes # (Auto) 0.7, Eosinophils # (Auto) 0.4, Basophils # (Auto) 0.1, Nucleated Red Blood Cells % (auto) 0.0, Anion Gap 4L, Glomerular Filtration Rate > 60.0, Blood Urea Nitrogen 13, Creatinine 0.93, Sodium Level 144, Potassium Level 3.7, Chloride Level 114H, Carbon Dioxide Level 26, Calcium Level 8.4L, Magnesium Level 2.3 CBC/BMP Laboratory Tests 12/07/18 12:31 Red Blood Count 4.95, Mean Corpuscular Volume 94.5, Mean Corpuscular Hemoglobin 31.1, Mean Corpuscular Hemoglobin Concent 32.9, Red Cell Distribution Width 13.4, Neutrophils (%) (Auto) 56.0, Lymphocytes (%) (Auto) 34.3, Monocytes (%) (Auto) 5.8 H, Eosinophils (%) (Auto) 2.4, Basophils (%) (Auto) 1.2 H, Neutroph ils # (Auto) 5.2, Lymphocytes # (Auto) 3.2, Monocytes # (Auto) 0.5, Eosinophils # (Auto) 0.2, Basophils # (Auto) 0.1 12/08/18 05:03 Red Blood Count 4.67, Mean Corpuscular Volume 93.6, Mean Corpuscular Hemoglobin 30.6, Mean Corpuscular Hemoglobin Concent 32.7, Red Cell Distribution Width 13.5, Neutrophils (%) (Auto) 62.6, Lymphocytes (%) (Auto) 25.9, Monocytes (%) (Auto) 6.5 H, Eosinophils (%) (Auto) 3.6 H, Basophils (%) (Auto) 0.9, Neutrophils # (Auto) 6.8, Lymphocytes # (Auto) 2.8, Monocytes # (Auto) 0.7, Eosinophils # (Auto) 0.4, Basophils # (Auto) 0.1, Calcium Level 8.4 L Discharge Medications Scheduled Nicotine (Nicotine Patch) 21 Mg Patch.td24, 1 PATCH TD DAILY Scheduled PRN Acetaminophen (Acetaminophen ER) 650 Mg Tablet.er, 650 MG PO Q4HP PRN for pain Allergies Coded Allergies: No Known Allergies (Unverified , 12/07/18) ROSALES LOUIS MD Dec 08, 2018 08:56
--- NOTE | 2018-12-08 11:46 | REP ---
C-ARM VIEWS OF THE CHEST: Four C-arm views of the chest are performed during placement of dual-lead pacemaker. Atrial and ventricular leads appear to be in position. 4 minutes 41 seconds of fluoroscopy time utilized. Electronically Signed by Pascual Galan MD 12/08/2018 05:20 P
[2018-12-08 12:00] VITALS: BP 143/73
[2018-12-08] MEDS ORDERED: VITA1TAB23 PO (13:34)
--- NOTE | 2018-12-08 23:26 | ECGEPIP ---
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 Electronically Signed on 12-08-2018 23:26:15 EDT by Tanner Ko
[2018-12-09 00:07] LABS: Lyme Disease IgG/IgM Antibodie <0.91 ISR (0.00-0.90); Lyme Disease IgM Ab Quantitati <0.80 index (0.00-0.79)
--- NOTE | 2018-12-10 22:49 | ECHO ---
DATE OF PROCEDURE: 12/08/2018 REFERRING PHYSICIAN: Dr. Matthew York INDICATION: Abnormal ECG. HEIGHT: 178 cm WEIGHT: 85 kg 2D MEASUREMENTS: Ventricular septum: 1.24 cm Posterior wall: 1.05 cm Left ventricle diastole: 5.9 cm Aortic root: 3.0 cm LVOT: 2.0 cm Left atrium: 3.9 cm Left atrial volume index: 27.6 Inferior vena cava: 2.0 cm with more than 50% respiratory variation DOPPLER MEASUREMENTS: Aortic valve velocity: 171 cm/s LVOT velocity: 147 cm/s LVOT VTI: 25.9 cm Trace mitral regurgitation. Mitral E velocity: 81.9 cm/s Mitral A velocity: 64.2 cm/s Pulmonary acceleration time: 169 ms MITRAL ANNULAR TISSUE DOPPLER: E prime lateral: 12.3 cm/s E prime septal: 11.8 cm/s DESCRIPTION: Rhythm was atrial paced, predominantly in the 50s. Image quality was adequate. This was a 2D, M-mode, color flow Doppler and pulse wave Doppler examination and included mitral annular tissue Doppler. CONCLUSIONS: 1. Mild left ventricle dilatation with borderline left ventricle hypertrophy. Normal regional left ventricular (LV) wall motion and wall thickening. Normal LV systolic function. Left ventricular ejection fraction (LVEF) 60% by visual estimate. Normal LV diastolic function. 2. Appearance of normal right ventricle size and systolic function. 3. Presence of endocardial, right atrial, and right ventricle pacemaker leads. 4. No pericardial effusion. 5. Otherwise normal appearing echocardiogram Doppler findings.
== END 2018-12-08 16:05 | disposition home or self-care (01) | DRG 171 ==
LOC: M ED 08:02 → M ED INP 14:16 → M PCU 23:18
PROVIDERS: ADMIT Internal Medicine; ATTEND Internal Medicine
PROC: 02H633Z Insertion of Infusion Device into Right Atrium, Percutaneous Approach (ICD-10-PCS; 2018-12-07)
PROC: 02HK3JZ Insertion of Pacemaker Lead into Right Ventricle, Percutaneous Approach (ICD-10-PCS; 2018-12-07)
PROC: 0JH606Z Insertion of Pacemaker, Dual Chamber into Chest Subcutaneous Tissue and Fascia, Open Approach (ICD-10-PCS; principal; 2018-12-07 17:00)
DX: I49.5 Sick sinus syndrome (principal); G62.9 Polyneuropathy, unspecified; I11.9 Hypertensive heart disease without heart failure; F41.9 Anxiety disorder, unspecified; F17.200 Nicotine dependence, unspecified, uncomplicated; F14.10 Cocaine abuse, uncomplicated; F12.10 Cannabis abuse, uncomplicated; M50.90 Cervical disc disorder, unspecified, unspecified cervical region

== ENCOUNTER 2019-12-08 10:04 | Emergency (ER) | payer OTHER ==
[~2019-12-08] VITALS: Ht 177.8 cm; Wt 84.3 kg
[~2019-12-08 10:04] MED LIST: ACE65ERTAB PO; ASCO250T20 PO; IBUP1TAB6 PO; NICO21PAT TD; NORC1TAB7 PO; OXYC1TAB23 PO
[2019-12-08] MEDS ORDERED: CYMB60CA3 PO (10:12)
[2019-12-08] MEDS ORDERED: HYDR50TA70 PO (10:12)
[2019-12-08] MEDS ORDERED: LISI-538 PO (10:12)
[2019-12-08] MEDS ORDERED: FAMO40TA3 PO (10:13)
[2019-12-08] MEDS ORDERED: ASPIRIN 325 MG TAB PO ONE (10:45)
[2019-12-08 10:47] LABS: BASO # 0.1 10^3/uL (0.0-0.2); BASO % 0.9 % (0.0-1.0); EOS # 0.3 10^3/uL (0.0-0.5); EOS % 2.3 % (0.0-3.0); HEMATOCRIT 47.4 % (42.0-52.0); HEMOGLOBIN 15.8 g/dl (13.5-17.5); LYMPH # 1.9 10^3/uL (1.5-5.0); LYMPH % 14.1 % (24.0-44.0); MEAN CORPUSCULAR HEMOGLOBIN 30.8 pg (27.0-33.0); MEAN CORPUSCULAR HGB CONC 33.3 g/dl (32.0-36.5); MEAN CORPUSCULAR VOLUME 92.4 fl (80.0-96.0); MONO # 0.9 10^3/uL (0.0-0.8); MONO % 6.4 % (0.0-5.0); NEUTROPHILS # 10.4 10^3/uL (1.5-8.5); PLATELET COUNT, AUTOMATED 365 10^3/uL (150-450); RED BLOOD COUNT 5.13 10^6/uL (4.30-6.10); WHITE BLOOD COUNT 13.7 10^3/uL (4.0-10.0)
--- NOTE | 2019-12-08 11:13 | ECGEPIP ---
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
[2019-12-08 11:17] LABS: BILIRUBIN,DIRECT 0.1 MG/DL (0.0-0.2); BILIRUBIN,TOTAL 0.6 MG/DL (0.2-1.0); FREE T4 0.97 NG/DL (0.76-1.46); THYROID STIMULATING HORMONE 0.663 uIU/ML (0.358-3.740); TOTAL PROTEIN 7.3 GM/DL (6.4-8.2)
--- NOTE | 2019-12-08 11:22 | REP ---
Portable chest x-ray: Single view. History: Chest pain. Comparison chest x-ray: December 08, 2018. Findings: Monitoring electrodes overlie the chest. A bipolar pacemaker is again seen in the right heart via the left side. The lungs are well inflated and clear. Pleural angles are sharp. Heart size is normal. Pulmonary vasculature is not increased. Impression: No active disease. Pacemaker in place. Electronically Signed by Wyatt Anderson MD 12/08/2019 11:14 A
[2019-12-08] MEDS ORDERED: ISOVUE-370 76% 100ML VIAL As Ordered ONE (12:16)
--- NOTE | 2019-12-08 12:57 | REP ---
Clinical: Acute pleuritic chest pain. Technique: Axial contrast enhanced images from the thoracic inlet to the upper abdomen using 75 ml Isovue 370 intravenous contrast material with coronal and sagittal re-formations. Findings: Satisfactory enhancement of the pulmonary vasculature is achieved and no filling defects are identified to suggest pulmonary embolus. Thoracic aorta is normal caliber without aneurysm or dissection. Heart and pericardium are normal. Bilateral lung leonard are well aerated and clear without acute pulmonary parenchymal consolidation or atelectasis. No nodule or mass lesion. No pleural effusion/reaction. No pneumothorax. No adenopathy. Impression: No evidence for pulmonary embolus. No acute pleuroparenchymal or mediastinal process. Electronically Signed by Mark Anthony Montesinos MD 12/08/2019 12:48 P
[2019-12-08 13:46] VITALS: BP 144/66
--- NOTE | 2019-12-09 08:01 | ECGEPIP ---
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
== END 2019-12-08 13:59 | disposition home or self-care (01) ==
LOC: M ED 10:04
DX: R07.9 Chest pain, unspecified (principal); R06.02 Shortness of breath; R94.31 Abnormal electrocardiogram [ECG] [EKG]; I11.9 Hypertensive heart disease without heart failure; Z95.0 Presence of cardiac pacemaker; F17.210 Nicotine dependence, cigarettes, uncomplicated; Z79.899 Other long term (current) drug therapy
CPT/HCPCS: 71045; 71275; 80047; 80076; 83690; 84439; 84443; 85025; 93005; 93041; 94760; 99285; Q9967